=== PATIENT | female | born 1965 | race Two or more races ===

== ENCOUNTER 2024-12-17 10:10 | Emergency (ER) | payer MEDICAID, SELFPAY ==
[2024-12-17 10:18] VITALS: BP 165/90; BP 177/83; PULSE 45; RESP 18; TEMP 36.7; O2SAT 97; BMI 30.9
--- NOTE | 2024-12-17 10:21 | EKG_ITS ---
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
--- NOTE | 2024-12-17 10:37 | EDRME_ITS ---
Rapid Medical Screening Exam [facility] Arrival date/time: 12/17/24 10:10 This is a 59-year-old female that comes into the emergency room sent by her primary provider for a cardiac workup. Patient has been complaining of fatigue and weakness. Patient was recently found to have a low heart rate. Patient denies chest pain shortness of breath. Patient denies nausea vomiting diarrhea. Patient states that she has been feeling really weak. Patient also reports that she has a mild headache and has some tinnitus to her right ear. Patient has been told that she has anemia. Patient also has a history of high blood pressure. I have greeted and performed a focused initial assessment of this patient. Initial appropriate labs ordered at this time. A comprehensive ED assessment and evaluation of the patient and analysis of all test and completion of medical decision making process will be conducted by additional ED provider. Chief Complaint: Flu Like Symptoms Time Seen by Provider: 12/17/24 10:17 Vital signs: Vital Signs Temperature 98.0 F 12/17/24 10:18 Pulse Rate 45 L 12/17/24 10:18 Respiratory Rate 18 12/17/24 10:18 Blood Pressure 177/83 H 12/17/24 10:18 Pulse Oximetry (%) 97 12/17/24 10:18 Oxygen Delivery Method Room Air 12/17/24 10:18
--- NOTE | 2024-12-17 10:41 | XR_ITS ---
Examination: PA lateral chest 2 views Technique: Upright PA lateral chest 2 views Date and time: December 18, 1999 2512 noon Indications: Weakness beginning one week ago. Findings: Mild prominence left ventricle. Mild vascular congestion. No pneumonia or pulmonary edema Impression: Mild vascular congestion
[2024-12-17 11:38] LABS: Basophils % (Auto) 0 % (0-2.5); Eosinophils # (Auto) 0.3 Thou/mm3 (0.0-0.5); Eosinophils % (Auto) 5 % (0-10); Hematocrit 39.8 % (36.0-46.0); Hemoglobin 13.6 g/dL (12.0-16.0); Immature Granulocytes % (Auto) 1 % (0-0); Immature Granulocytes Auto 0.06 Thou/mm3 (0.00-0.00); Lymphocytes # (Auto) 2.1 Thou/mm3 (1.0-4.8); Lymphocytes % (Auto) 33 % (10-50); Mean Corpuscular HGB Conc 34.2 g/dl (31.0-37.0); Mean Corpuscular Hemoglobin 29.8 pg (25.0-35.0); Mean Corpuscular Volume 87 fL (80-100); Monocytes # (Auto) 0.4 Thou/mm3 (0.0-0.8); Monocytes % (Auto) 7 % (0-12); Neutrophils # (Auto) 3.5 Thou/mm3 (1.8-7.7); Neutrophils % (Auto) 55 % (37-80); Nucleated Red Blood Cell % 0 /100 WBC (0); Platelet Count 271 Thou/mm3 (140-440); RDW Standard Deviation 40.2 fL (36.4-46.3); Red Blood Count 4.57 Miln/mm3 (4.00-5.20); White Blood Count 6.4 Thou/mm3 (3.6-11.0)
[2024-12-17 11:56] LABS: Alanine Aminotransferase 16 U/L (10-49); Albumin, Serum 4.6 gm/dL (3.5-5.0); Albumin/Globulin Ratio 1.6 (1.2-2.2); Alkaline Phosphatase 77 U/L (46-116); Anion Gap 7 (7-16); Aspartate Amino Transferase 22 U/L (0-34); B-Type Natriuretic Peptide 73 pg/mL (0-100); BUN/Creatinine Ratio 19 Ratio (12-20); Bilirubin,Total 0.9 mg/dL (0.3-1.2); Blood Urea Nitrogen 17 mg/dL (9-23); Calcium 9.4 mg/dL (8.3-10.6); Calcium (Corrected) 9.4 mg/dL (8.5-10.1); Carbon Dioxide 27.7 mMol/L (20.0-31.0); Chloride 106 mMol/L (98-107); Creatinine (Component) 0.9 mg/dL (0.6-1.3); Estimated Creatinine Clearance 65.4 mL/min (>60); Globulin 2.9 gm/dL (2.3-3.5); Glucose 91 mg/dL (74-106); Osmolality,Calculated 282 (275-295); Potassium 4.3 mMol/L (3.4-5.1); Sodium 141 mMol/L (136-145); Total Protein 7.5 gm/dL (5.7-8.2); Troponin I < 0.002 ng/mL (0.0-0.045); eGFR > 60 See Note
--- NOTE | 2024-12-17 12:49 | PD.EDADULT ---
ED General RME/HPI General Chief complaint: Flu Like Symptoms Stated complaint: Fatigue, ALEJANDRA Time Seen by Provider: 12/17/24 10:17 Arrival date/time: 12/17/24 10:10 RME / HPI RME / HPI narrative: 59-year-old female that comes into the emergency room sent by her primary provider for a cardiac workup. Patient has been complaining of fatigue and weakness. Patient was recently found to have a low heart rate. Patient denies chest pain shortness of breath. Patient denies nausea vomiting diarrhea. Patient states that she has been feeling really weak. Patient also reports that she has a mild headache and has some tinnitus to her right ear. Patient has been told that she has anemia. Patient also has a history of high blood pressure. Patient did not take her lisinopril this morning. Related Data Home Medications ?Medication ?Instructions ?Recorded ?Confirmed lisinopril 10 mg tablet (Prinivil) 10 mg PO QDAY #0 tabs 07/25/13 04/09/18 omeprazole 20 mg capsule,delayed 20 mg PO QDAY ##0 07/25/13 04/09/18 release (Prilosec) Previous Rx's ?Medication ?Instructions ?Recorded ibuprofen 600 mg tablet 600 mg PO TID #20 tabs 04/10/18 prednisone 20 mg tablet 60 mg (3 x 20 mg) PO QDAY #15 tabs 04/10/18 Allergies Allergy/AdvReac Type Severity Reaction Status Date / Time NKA* Allergy Uncoded 04/09/18 21:15 Review of Systems Review of Systems Narrative Review of Systems: Review of system reviewed and within normal limits except mentioned in HPI ED Exam Narrative Physical exam: VITAL SIGNS: Reviewed. GENERAL APPEARANCE: Alert and interactive, follows commands, no acute distress, HEAD AND FACE: Non-traumatic. ENT: PERRL, pink conjunctivitis, eyelid no trauma, Mucous membrane moist. NECK: Supple, nontender, no nuchal rigidity. CHEST: No tenderness, no crepitus, no paradoxical movement, no retractions. LUNGS: Clear, well ventilated, symmetric, no rales, no wheezing, no ronchi, no stridor, good breath sounds bilaterally. HEART: Regular rate, regular rhythm, no murmur, no gallops. ABDOMEN: Soft, positive bowel sounds, nondistended, no guarding, nontender, no rebound, no masses, RECTAL: Deferred. GENITAL: Deferred. NEUROLOGICAL: Gross motor function intact sensory function intact, Appropriate for age. MUSCULOSKELETAL: low back nontender, full range of motion. EXTREMITIES: Nontender, full range of motion. SKIN: Color pink, dry, no rash, no lacerations, no abrasions, no contusions. LYMPHATICS: Deferred. Course Quality Measures none Orders Category Date Time Status EKG (ED ONLY) *Do not use* NOW Care 12/17/24 10:21 Completed EKG (ED Only) Stat Exams 12/17/24 10:21 Draft XR chest 2V Stat Exams 12/17/24 10:41 Completed BNP [B-Type Natriuretic Peptide] Stat Lab 12/17/24 11:13 Completed CBC Stat Lab 12/17/24 11:13 Completed Comprehensive Metabolic Panel Stat Lab 12/17/24 11:13 Completed Troponin I Stat Lab 12/17/24 11:13 Completed Vital Signs Vital signs: Vital Signs Temperature 98.0 F 12/17/24 10:18 Pulse Rate 45 L 12/17/24 10:18 Respiratory Rate 18 12/17/24 10:18 Blood Pressure 177/83 H 12/17/24 10:18 Pulse Oximetry (%) 97 12/17/24 10:18 Oxygen Delivery Method Room Air 12/17/24 10:18 Discharge Plan Plan Patient Disposition: HOME (Self Care) Discharge Disposition comment: Stable Prescriptions/Referrals Prescriptions/Med Rec: No Action lisinopril [Prinivil] 10 MG tablet 10 mg PO QDAY Qty: 0 omeprazole [Prilosec] 20 MG capsule,delayed release(DR/EC) 20 mg PO QDAY Qty: 0 Patient Comments: TO SUPPRESS GASTRIC ACID SECRETIONS prednisone 20 mg tablet 60 mg PO QDAY Qty: 15 0RF ibuprofen 600 mg tablet 600 mg PO TID Qty: 20 0RF Referrals: Dann Muñoz MD [Primary Care Provider] - In 1 week Problem List Clinical Impression: Asymptomatic bradycardia Patient/Caregiver Discharge Instructions Discharge Activity: activity as tolerated Education Materials: ED Bradycardia Additional Instructions: Thank you for the opportunity for serving you today. You are stable for discharged . 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 Print Language: Urdu Stand Alone Forms: [employer] Award Info., Patient Portal Info Letter JAYCEE/YEISON Supervising Physician BRODERICK Supervising Physician: MD Deepthi MDM Narrative MDM hospital course (for use when minimal MDM required): 59-year-old female that comes into the emergency room sent by her primary provider for a cardiac workup. Patient has been complaining of fatigue and weakness. Patient was recently found to have a low heart rate. Patient denies chest pain shortness of breath. Patient denies nausea vomiting diarrhea. Patient states that she has been feeling really weak. Patient also reports that she has a mild headache and has some tinnitus to her right ear. Patient has been told that she has anemia. Patient also has a history of high blood pressure. Patient did not take her lisinopril this morning. I personally reviewed and interpreted the x-ray of this patient. There is no acute abnormalities found, no infiltrates no pneumothorax no hemothorax normal chest x-ray. Review of other structures was without significant abnormal findings also. I additionally reviewed the radiologist report and agree with the interpretation. EKG as interpreted by me showed sinus bradycardia, no ST segment elevation or depression noted, ventricular rate of 50 bpm. Patient's cardiac workup all came back unremarkable. The rest of the labs unremarkable. Patient is not having any symptoms prior to discharge. Diagnosis Differential Diagnosis ED Complaint MDM: Generalized weakness, asymptomatic bradycardia, Diagnoses ruled out and/or further discussions: Asymptomatic bradycardia
== END 2024-12-17 13:36 | disposition home or self-care (01) ==
PROVIDERS: Nurse Practitioner Family; Emergency Provider Emergency Medicine; PCP Family Medicine
DX: R00.1 Bradycardia, unspecified (principal); R51.9 Headache, unspecified; H93.11 Tinnitus, right ear
CPT/HCPCS: 36415; 71046; 80053; 83880; 84484; 85025; 93005; 99283